=== PATIENT | female | born 1980 | race Caucasian/White ===

== ENCOUNTER 2017-05-16 11:52 | Emergency (ER) | payer MEDICAID ==
[2017-05-16] MEDS: LIDOCAINE 2% (MDV) 20 ML INJ INJ (13:47)
== END 2017-05-16 14:53 | disposition home or self-care (01) ==
LOC: FTE 11:52
DX: S61.310A Laceration without foreign body of right index finger with damage to nail, initial encounter (principal); W23.1XXA Caught, crushed, jammed, or pinched between stationary objects, initial encounter; Y92.9 Unspecified place or not applicable
CPT/HCPCS: 11760; 73120; 99283-25